=== PATIENT | male | born 1935 | race Hispanic/Latino ===

== ENCOUNTER → 2017-08-21 | Outpatient (CLI) | payer MEDICARE ==
[~2017-08-21] MED LIST: ATOR20TA65 PO; ESOMEPRAZOLE PO; GABA300S PO; GLIP10TA9 PO; LINA5TAB PO; LISI-613 PO; PIOG45TA17 PO; TAMS0.4C32 PO
== END | disposition home or self-care (01) ==
LOC: RAH 14:45
PROVIDERS: ATTEND Neuromusculoskeletal Medicine & OMM
DX: M47.896 Other spondylosis, lumbar region (principal); M48.062 Spinal stenosis, lumbar region with neurogenic claudication
CPT/HCPCS: 72114

== ENCOUNTER → 2017-08-27 | Outpatient (CLI) | payer MEDICARE | END | disposition home or self-care (01) | LOC: RAH 12:10 | PROVIDERS: ATTEND Internal Medicine | DX: G31.9 Degenerative disease of nervous system, unspecified (principal); J32.0 Chronic maxillary sinusitis; I73.9 Peripheral vascular disease, unspecified | CPT/HCPCS: 70551 ==

== ENCOUNTER 2018-08-26 14:43 | Observation (INO) | payer MEDICARE ==
[~2018-08-26 14:43] MED LIST changes: -PIOG45TA17 PO; +PIOG45TA64 PO
[2018-08-26 15:01] LABS: BASOPHILS % (AUTO) 0.4 % (0.0-5.0); EOSINOPHILS % (AUTO) 1.6 % (0.0-8.0); HEMATOCRIT 41.1 % (42-54); LYMPHOCYTES % (AUTO) 26.8 % (21.0-51.0); MEAN CORPUSCULAR HEMOGLOBIN 28.5 pg (27.0-33.0); MEAN CORPUSCULAR HGB CONC 33.3 g/dL (32.0-36.0); MEAN CORPUSCULAR VOLUME 85.5 fL (79-99); NEUTROPHILS % (AUTO) 64.2 % (40.0-77.0); PLATELET COUNT (AUTO) 215 K/uL (130-400); RED BLOOD CELL COUNT(AUTO) 4.81 MIL/uL (4.50-6.20); WHITE BLOOD COUNT (AUTO) 8.1 K/uL (4.8-10.8)
[2018-08-26] MEDS ORDERED: ONDANSETRON HCL 4 MG/2 ML VIAL ONE (15:14)
[2018-08-26] MEDS ORDERED: MORPHINE SULFATE 4 MG/1ML SYG ONE (15:14)
[2018-08-26 15:16] LABS: CREATININE 1.4 mg/dL (0.5-1.5); POTASSIUM 4.2 mmol/L (3.5-5.1)
[2018-08-26 15:18] LABS: INR 0.9 (0.85-1.15); PARTIAL THROMBOPLASTIN TIME 28.2 SEC (26.3-35.5); PROTHROMBIN TIME 9.5 SEC (9.6-11.6)
[2018-08-26 15:21] LABS: ALBUMIN 4.1 g/dL (3.5-5.0); BILIRUBIN,TOTAL 0.3 mg/dL (0.2-1.0)
[2018-08-26] MEDS ORDERED: ASPIRIN 325 MG TABLET ONE (16:13)
[2018-08-26 16:35] LABS: APPEARANCE,URINE Clear (CLEAR); BILIRUBIN,URINE Negative (NEGATIVE); COLOR,URINE Yellow (YELLOW); GLUCOSE, URINE (UA) >=1000 mg/dL (NEGATIVE); KETONES,URINE Negative (NEGATIVE); LEUKOCYTE ESTERASE ,URINE Negative (NEGATIVE); NITRATE,URINE Negative (NEGATIVE); OCCULT BLOOD,URINE Negative (NEGATIVE); PROTEIN,URINE Negative (NEGATIVE); UROBILINOGEN,URINE 0.2 mg/dL (0.2-1.0)
[2018-08-26] MEDS ORDERED: MORPHINE SULFATE 2 MG/ML 1ML SYG IV PRN (17:00)
[2018-08-26] MEDS ORDERED: HYDRALAZINE HCL 20 MG/ML VIAL IV PRN (17:00)
[2018-08-26] MEDS ORDERED: ACETAMINOPHEN 325 MG TAB PO PRN (17:00)
[2018-08-26] MEDS ORDERED: ONDANSETRON HCL 4 MG/2 ML VIAL IV PRN (17:00)
[2018-08-26 17:14] LABS: HEMOGLOBIN A1C 6.7 % (4.0-6.0)
[2018-08-26] MEDS ORDERED: ACETAMINOPHEN 325 MG TAB ONE ×3 (18:18→22:47)
[2018-08-26] MEDS ORDERED: NITROGLYCERIN 1GM/1 INCH PACKET TD ONE (18:18)
[2018-08-26] MEDS ORDERED: INSULIN GLARGINE 100 UNITS/ML 10 ML VIAL SQ SCH (21:00)
[2018-08-26] MEDS: NITROGLYCERIN 1GM/1 INCH PACKET TD SCH (22:00)
[2018-08-26 22:03] LABS: CREATINE KINASE, TOTAL 130 U/L (21-232); MYOGLOBIN 118 ng/mL (10-92); TROPONIN I < 0.04 ng/mL (0.00-0.06)
[2018-08-26] MEDS: INSULIN LISPRO 100 UNIT/ML 3ML SQ SCH (22:20)
[2018-08-26] MEDS ORDERED: METOPROLOL TARTRATE 25 MG TAB ONE (22:47)
[2018-08-26] MEDS: ACETAMINOPHEN 325 MG TAB PO PRN (22:53)
[2018-08-26] MEDS: METOPROLOL TARTRATE 25 MG TAB PO SCH (22:56)
[2018-08-26 22:58] VITALS: BP 138/68
[2018-08-26] MEDS ORDERED: EMPA25TA PO (23:12)
[2018-08-26] MEDS ORDERED: DULO30CA51 PO (23:12)
[2018-08-26] MEDS ORDERED: HYDR-4154 PO (23:12)
[2018-08-26] MEDS ORDERED: INSU100I13 SQ ×2 (23:12)
[2018-08-26] MEDS ORDERED: FURO40TA5 PO (23:12)
[2018-08-26] MEDS ORDERED: TRAZ-185 PO (23:12)
[2018-08-26] MEDS ORDERED: OMEP40CA37 PO (23:12)
[2018-08-27 01:48] LABS: CREATINE KINASE, TOTAL 139 U/L (21-232); MYOGLOBIN 179 ng/mL (10-92); TROPONIN I < 0.04 ng/mL (0.00-0.06)
[2018-08-27] MEDS ORDERED: NITROGLYCERIN 1GM/1 INCH PACKET TD ONE ×2 (02:16→09:39)
[2018-08-27] MEDS: NITROGLYCERIN 1GM/1 INCH PACKET TD SCH ×2 (02:17→09:52)
[2018-08-27 03:27] VITALS: BP 119/63
[2018-08-27 07:12] LABS: CHOLESTEROL 127 mg/dL (<200); HDL CHOLESTEROL 30 mg/dL (29-71); LDL DIRECT 79 mg/dL (0-99); TRIGLYCERIDES 142 mg/dL (30-200)
[2018-08-27 07:19] LABS: CREATINE KINASE, TOTAL 156 U/L (21-232); MYOGLOBIN 150 ng/mL (10-92); TROPONIN I < 0.04 ng/mL (0.00-0.06)
[2018-08-27 07:57] VITALS: BP 118/69
[2018-08-27] MEDS ORDERED: FAMOTIDINE/PF 20 MG/2 ML VIAL IV SCH (09:00)
[2018-08-27] MEDS ORDERED: ASPIRIN 325 MG TABLET PO SCH (09:00)
[2018-08-27] MEDS ORDERED: ENOXAPARIN SODIUM 40 MG/0.4 ML SYRINGE SQ SCH (09:00)
[2018-08-27] MEDS ORDERED: ASPIRIN 325 MG TABLET ONE (09:36)
[2018-08-27] MEDS ORDERED: ACETAMINOPHEN 325 MG TAB ONE (09:37)
[2018-08-27] MEDS ORDERED: FAMOTIDINE/PF 20 MG/2 ML VIAL IV ONE (09:37)
[2018-08-27] MEDS ORDERED: METOPROLOL TARTRATE 25 MG TAB ONE (09:37)
[2018-08-27] MEDS ORDERED: ENOXAPARIN SODIUM 40 MG/0.4 ML SYRINGE SQ ONE (09:39)
[2018-08-27] MEDS: METOPROLOL TARTRATE 25 MG TAB PO SCH (09:48)
[2018-08-27] MEDS: ACETAMINOPHEN 325 MG TAB PO PRN (09:49)
[2018-08-27] MEDS: INSULIN LISPRO 100 UNIT/ML 3ML SQ SCH ×2 (09:58→13:10)
[2018-08-27 11:20] VITALS: BP 138/74
[2018-08-27] MEDS ORDERED: ONDANSETRON HCL 4 MG/2 ML VIAL ONE (11:51)
[2018-08-27] MEDS ORDERED: NITR0.4T50 SL (14:24)
[2018-08-27] MEDS ORDERED: METO25 PO (14:24)
[2018-08-27] MEDS ORDERED: IBUP-2077 PO (14:42)
[2018-08-27 16:03] VITALS: BP 136/75
== END 2018-08-27 16:50 | disposition home or self-care (01) ==
LOC: EDH 14:43 → EDHIP 16:47
PROVIDERS: ADMIT Internal Medicine; ATTEND Internal Medicine
DX: R07.89 Other chest pain (principal); I16.0 Hypertensive urgency; K52.9 Noninfective gastroenteritis and colitis, unspecified; E11.40 Type 2 diabetes mellitus with diabetic neuropathy, unspecified; E78.5 Hyperlipidemia, unspecified; I10 Essential (primary) hypertension; I25.10 Atherosclerotic heart disease of native coronary artery without angina pectoris; N40.0 Benign prostatic hyperplasia without lower urinary tract symptoms; Z79.4 Long term (current) use of insulin; Z82.3 Family history of stroke; Z82.49 Family history of ischemic heart disease and other diseases of the circulatory system; Z83.3 Family history of diabetes mellitus; Z90.49 Acquired absence of other specified parts of digestive tract; Z98.41 Cataract extraction status, right eye; Z98.42 Cataract extraction status, left eye
CPT/HCPCS: 36415 ×2; 70450; 71045; 80053; 80061; 81003; 82550 ×4; 82948 ×4; 83036; 83874 ×3; 84484 ×4; 85025; 85610; 85730; 93005 ×3; 93306; 96372; 96374; 96375; 99284; G0378 ×24; J1650; J2270; J2405 ×2; J3490

== ENCOUNTER → 2019-11-14 | Outpatient (CLI) | payer MEDICARE ==
[~2019-11-14] MED LIST changes: -ATOR20TA65 PO; +DULO30CA52 PO; +EMPA25TA PO; -ESOMEPRAZOLE PO; +FURO40TA5 PO; -GABA300S PO; -GLIP10TA9 PO; +HYDR-4154 PO; +IBUP-2077 PO; +INSU100I13 SQ; -LISI-613 PO; +METO25 PO; +NITR0.4T50 SL; +OMEP40CA13 PO; -PIOG45TA64 PO; +TRAZ-185 PO
== END | disposition home or self-care (01) ==
LOC: RAH 11:42
PROVIDERS: ATTEND Internal Medicine
DX: M47.816 Spondylosis without myelopathy or radiculopathy, lumbar region (principal); Z90.49 Acquired absence of other specified parts of digestive tract
CPT/HCPCS: 72100

== ENCOUNTER → 2021-03-07 | Outpatient (CLI) | payer MEDICARE ==
[~2021-03-07] MED LIST changes: -OMEP40CA13 PO; +OMEP40CA21 PO
== END | disposition home or self-care (01) ==
LOC: RAH 09:08
PROVIDERS: ATTEND Internal Medicine Cardiovascular Disease
DX: I08.1 Rheumatic disorders of both mitral and tricuspid valves (principal); E78.5 Hyperlipidemia, unspecified; E11.9 Type 2 diabetes mellitus without complications
CPT/HCPCS: 93306; 93356

== ENCOUNTER → 2021-10-30 | Outpatient (CLI) | payer MEDICARE | END | disposition home or self-care (01) | LOC: RAH 15:41 | PROVIDERS: ATTEND Internal Medicine | DX: R05.3 Chronic cough (principal) | CPT/HCPCS: 71046 ==

== ENCOUNTER → 2022-07-10 | Outpatient (CLI) | payer MEDICARE ==
[2022-07-10 12:26] LABS: CREATININE 1.8 mg/dL (0.5-1.5); POTASSIUM 4.2 mmol/L (3.5-5.1)
== END | disposition home or self-care (01) ==
LOC: LAB 09:09
PROVIDERS: ATTEND Internal Medicine Cardiovascular Disease
DX: R60.9 Edema, unspecified (principal)
CPT/HCPCS: 36415; 80048

== ENCOUNTER → 2022-08-20 | Outpatient (CLI) | payer MEDICARE ==
[2022-08-20 14:24] LABS: CREATININE 1.8 mg/dL (0.5-1.5); POTASSIUM 4.3 mmol/L (3.5-5.1)
== END | disposition home or self-care (01) ==
LOC: LAB 08:17
PROVIDERS: ATTEND Internal Medicine Cardiovascular Disease
DX: R60.9 Edema, unspecified (principal)
CPT/HCPCS: 36415; 80048